=== PATIENT | male | born 1975 | race Caucasian/White ===

== ENCOUNTER 2020-11-26 12:51 | Inpatient (IN) ==
[2020-11-26] MEDS ORDERED: SODIUM CHLORIDE 0.9% 1,000 ML IV STA (13:07)
[2020-11-26 13:44] LABS: Basophils # 0.1 10*3/uL (0.0-0.2); Basophils % 1.1 % (0.0-0.8); Eosinophils # 0.1 10*3/uL (0.0-0.87); Eosinophils % 2.3 % (0.00-10.9); Hematocrit 27.4 VOL% (42.0-52.0); Hemoglobin 8.6 GM/DL (14.0-18.0); Immature Granulocytes % 0.6 %; Immature Granulocytes Absolute 0.03 #; Lymphocytes # 0.5 10*3/uL (1.4-4.0); Lymphocytes % 10.4 % (21.2-54.2); Mean Corpuscular HGB Conc 31.4 GM/DL (32-36); Mean Platelet Volume 11.7 FL (9.6-12.0); Monocytes % 13.8 % (1.7-12.7); Neutrophils % 71.8 % (38.7-73.9); Platelet Count 72 T/CUMM (130-400); Red Blood Count 2.66 MC/CUMM (3.8-5.5); Red Cell Distribution Width 17.3 % (9.3-17.3); White Blood Count 4.7 T/CUMM (4-12)
[2020-11-26 13:53] LABS: INR 1.4; PT Patient Result 15.6 SECS (10.5-12.0)
[2020-11-26 14:09] LABS: Anisocytosis 2+; Band Neutrophils 2 % (0-10); Eosinophils 1 % (0-10); Lymphocytes 11 % (20-55); Platelet Estimate Decreased; Segmented Neutrophils 72 % (50-85); Total Cells Counted 100
[2020-11-26 14:10] LABS: Hypochromasia Slight; Macrocytosis 1+
[2020-11-26 14:11] LABS: Albumin 3.1 G/DL (3.4-5.0); Bilirubin,Total 4.8 MG/DL (0.20-1.00); Calcium 7.9 MG/DL (8.5-10.1); Osmolality,Calculated 265.5 MOS/KG (273-304); Potassium 2.7 MMOL/L (3.5-5.1); Thyroid Stimulating Hormone 2.07 uIU/ml (0.358-3.74); Total Protein 7.7 G/DL (6.4-8.2)
[2020-11-26] MEDS ORDERED: SODIUM CHLORIDE 0.9% 1,000 ML IV SCH (15:30)
[2020-11-26] MEDS ORDERED: GLUCAGON 1 MG VIAL IM PRN ×2 (15:30→16:04)
[2020-11-26] MEDS ORDERED: ONDANSETRON 4 MG/2 ML VIAL IV PRN ×2 (15:30→16:04)
[2020-11-26] MEDS ORDERED: POTASSIUM CHLORIDE 20 MEQ TABLET PO ONE (16:02)
[2020-11-26] MEDS ORDERED: DEXTROSE 50% 25 GM/50 ML VIAL IV PRN (16:04)
[2020-11-26] MEDS ORDERED: LORazepam 2 MG/1 ML VIAL ONE (16:21)
[2020-11-26] MEDS ORDERED: LORazepam 2 MG/1 ML VIAL IM PRN (16:24)
[2020-11-26] MEDS: VALPROIC ACID INJ 500 MG in SODIUM CHLORIDE 0.9% 100 ML IV SCH (16:40)
[2020-11-26] MEDS ORDERED: LORazepam 2 MG/1 ML VIAL IV PRN (17:00)
[2020-11-26] MEDS ORDERED: POTASSIUM CHLORIDE INJ 40 MEQ in SODIUM CHLORIDE 0.9% 500 ML IV ONE (17:53)
[2020-11-26] MEDS: PANTOPRAZOLE 40 MG VIAL IV SCH (18:01)
[2020-11-26] MEDS: DEXT 5% NACL 0.9% KCL 20 MEQ 20 MEQ/1,000 ML BAG IV SCH (18:03)
[2020-11-26] MEDS: cefTRIAXone 1,000 MG in SODIUM CHLORIDE 0.9% 100 ML IV SCH (18:39)
[2020-11-26] MEDS ORDERED: ASPIRIN EC 81 MG TABLET PO SCH (21:30)
[2020-11-26] MEDS: THIAMINE 200 MG/2 ML VIAL IV SCH (21:45)
[2020-11-26] MEDS: LACOSAMIDE INJ 200 MG in SODIUM CHLORIDE 0.9% 50 ML IV SCH (21:45)
[2020-11-26] MEDS: ENOXAPARIN 40 MG/0.4 ML SYRINGE SUBCUT SCH (21:45)
[2020-11-27] MEDS: VALPROIC ACID INJ 500 MG in SODIUM CHLORIDE 0.9% 100 ML IV SCH ×3 (02:10→18:11)
[2020-11-27] MEDS: AZITHROMYCIN INJ 500 MG in SODIUM CHLORIDE 0.9% 250 ML IV SCH (03:15)
[2020-11-27 05:36] LABS: Hematocrit 23.6 VOL% (42.0-52.0); Hemoglobin 7.2 GM/DL (14.0-18.0); Immature Granulocytes % 0.7 %; Immature Granulocytes Absolute 0.03 #; Lymphocytes # 0.8 10*3/uL (1.4-4.0); Lymphocytes % 20.4 % (21.2-54.2); Mean Corpuscular HGB Conc 30.5 GM/DL (32-36); Mean Platelet Volume 11.2 FL (9.6-12.0); Monocytes % 20.4 % (1.7-12.7); Neutrophils % 56.5 % (38.7-73.9); Platelet Count 67 T/CUMM (130-400); Red Blood Count 2.27 MC/CUMM (3.8-5.5); Red Cell Distribution Width 17.5 % (9.3-17.3); White Blood Count 4.1 T/CUMM (4-12)
[2020-11-27] MEDS: DEXT 5% NACL 0.9% KCL 20 MEQ 20 MEQ/1,000 ML BAG IV SCH ×2 (05:42→18:11)
[2020-11-27 06:02] LABS: Eosinophils 1 % (0-10); Hypochromasia 1+; Lymphocytes 16 % (20-55); Microcytosis 1+; Platelet Estimate Decreased; Segmented Neutrophils 64 % (50-85); Total Cells Counted 100
[2020-11-27 06:07] LABS: Risk Ratio 4.08; VLDL Cholesterol 11.2 MG/DL
[2020-11-27 06:13] LABS: Albumin 2.4 G/DL (3.4-5.0); Bilirubin,Total 3.6 MG/DL (0.20-1.00); Calcium 7.2 MG/DL (8.5-10.1); Osmolality,Calculated 275.4 MOS/KG (273-304); Potassium 3.3 MMOL/L (3.5-5.1)
[2020-11-27 06:17] LABS: Ferritin 56.3 ng/mL (26-388)
[2020-11-27 06:52] LABS: Albumin 2.5 G/DL (3.4-5.0); Bilirubin,Direct 2.31 MG/DL (0.0-0.20); Bilirubin,Indirect 1.3 MG/DL (0.0-1.0); Bilirubin,Total 3.6 MG/DL (0.20-1.00); Total Protein 6.1 G/DL (6.4-8.2)
[2020-11-27 07:06] LABS: Sedimentation Rate-Westergren 64 MM/HR (0-15)
[2020-11-27 07:30] LABS: Hepatitis B Core IgM Quant 0.08 Index; Hepatitis B Surface Ag Quant < 0.10 Index; Hepatitis B Surface Ag Result Non-Reactive (NonReactive); Hepatitis C Virus Ab Result Non-Reactive (NonReactive); Vitamin B12 728 PG/ML (211-911)
[2020-11-27] MEDS ORDERED: SODIUM CHLORIDE 0.9% 1,000 ML IV PRN (08:50)
[2020-11-27 09:34] LABS: Hemoglobin A1 (Alkaline) 97.7 % (96.5-98.5); Hemoglobin A2 (Alkaline) 2.3 % (1.5-3.5)
[2020-11-27] MEDS: ROSUVASTATIN 20 MG TABLET PO SCH (09:56)
[2020-11-27] MEDS: PANTOPRAZOLE 40 MG VIAL IV SCH (09:56)
[2020-11-27] MEDS: ASPIRIN 325 MG TABLET PO SCH (09:56)
[2020-11-27] MEDS: LACOSAMIDE INJ 200 MG in SODIUM CHLORIDE 0.9% 50 ML IV SCH (09:57)
[2020-11-27] MEDS: THIAMINE 200 MG/2 ML VIAL IV SCH ×2 (09:57→20:23)
[2020-11-27] MEDS ORDERED: POTASSIUM CHLORIDE 20 MEQ TABLET PO ONE (10:06)
[2020-11-27 17:07] LABS: Hematocrit 27.8 VOL% (42.0-52.0); Hemoglobin 8.6 GM/DL (14.0-18.0)
[2020-11-27] MEDS: cefTRIAXone 1,000 MG in SODIUM CHLORIDE 0.9% 100 ML IV SCH (17:26)
[2020-11-27] MEDS: ENOXAPARIN 40 MG/0.4 ML SYRINGE SUBCUT SCH (20:23)
[2020-11-27] MEDS: LACOSAMIDE INJ 100 MG in SODIUM CHLORIDE 0.9% 50 ML IV SCH (20:51)
[2020-11-27] MEDS ORDERED: ATORVASTATIN 20 MG TABLET PO SCH (21:00)
[2020-11-28] MEDS: VALPROIC ACID INJ 500 MG in SODIUM CHLORIDE 0.9% 100 ML IV SCH ×3 (00:09→16:20)
[2020-11-28] MEDS: AZITHROMYCIN INJ 500 MG in SODIUM CHLORIDE 0.9% 250 ML IV SCH (03:13)
[2020-11-28 04:22] LABS: Basophils # 0.1 10*3/uL (0.0-0.2); Basophils % 1.3 % (0.0-0.8); Eosinophils # 0.1 10*3/uL (0.0-0.87); Eosinophils % 3.1 % (0.00-10.9); Hematocrit 25.1 VOL% (42.0-52.0); Hemoglobin 7.9 GM/DL (14.0-18.0); Immature Granulocytes % 0.4 %; Immature Granulocytes Absolute 0.02 #; Lymphocytes % 22.5 % (21.2-54.2); Mean Corpuscular HGB Conc 31.5 GM/DL (32-36); Mean Corpuscular Volume 100.4 FL (87-102); Mean Platelet Volume 10.4 FL (9.6-12.0); Monocytes % 20.4 % (1.7-12.7); Neutrophils % 52.3 % (38.7-73.9); Red Cell Distribution Width 19.5 % (9.3-17.3); White Blood Count 4.5 T/CUMM (4-12)
[2020-11-28 04:25] LABS: Platelet Count 76 T/CUMM (130-400)
[2020-11-28 04:41] LABS: Calcium 7.2 MG/DL (8.5-10.1); Eosinophils 3 % (0-10); Lymphocytes 21 % (20-55); Potassium 3.4 MMOL/L (3.5-5.1); Segmented Neutrophils 52 % (50-85); Total Cells Counted 100
[2020-11-28 04:42] LABS: Anisocytosis 1+; Hypochromasia 1+; Microcytosis 1+; Ovalocytes Slight
[2020-11-28 04:43] LABS: Platelet Estimate Decreased
[2020-11-28] MEDS: POTASSIUM CHLORIDE RIDER 10 MEQ/100 ML PREMIX IV PRN ×2 (05:20→06:22)
[2020-11-28] MEDS: ROSUVASTATIN 20 MG TABLET PO SCH (08:11)
[2020-11-28] MEDS: THIAMINE 200 MG/2 ML VIAL IV SCH ×2 (08:11→22:36)
[2020-11-28] MEDS: POTASSIUM CHLORIDE 20 MEQ TABLET PO SCH (08:11)
[2020-11-28] MEDS: ASPIRIN 325 MG TABLET PO SCH (08:11)
[2020-11-28] MEDS: PANTOPRAZOLE 40 MG VIAL IV SCH (08:11)
[2020-11-28] MEDS: LACOSAMIDE INJ 100 MG in SODIUM CHLORIDE 0.9% 50 ML IV SCH ×2 (09:50→22:36)
[2020-11-28] MEDS: DEXT 5% NACL 0.9% KCL 20 MEQ 20 MEQ/1,000 ML BAG IV SCH (12:29)
[2020-11-28] MEDS ORDERED: ACETAMINOPHEN 325 MG TABLET PO PRN (16:34)
[2020-11-28] MEDS ORDERED: ACETAMINOPHEN 325 MG TABLET PO ONE (16:38)
[2020-11-28 17:17] LABS: Bilirubin,Urine Negative (Negative); Blood, Urine Negative (Negative); Glucose,Urine (UA) Negative (Negative); Ketones,Urine Negative (Negative); Mucus,Urine Occasional /LPF (Occasional); Nitrite,Urine Negative (Negative); Protein,Urine Negative; RBC,Urine 1 /HPF (0-4); Urine Appearance CLEAR (Clear); Urine Color Yellow (Yellow); Urine Specific Gravity 1.012 (1.001-1.035)
[2020-11-28] MEDS: cefTRIAXone 1,000 MG in SODIUM CHLORIDE 0.9% 100 ML IV SCH (18:07)
[2020-11-28] MEDS: ENOXAPARIN 40 MG/0.4 ML SYRINGE SUBCUT SCH (21:10)
[2020-11-28 21:54] LABS: Barbiturates Screen,Urine Negative (Negative); Benzodiazepines Screen,Urine Negative (Negative); Cannabinoid Screen,Urine Negative (Negative); Opiate Screen,Urine Negative (Negative); Phencyclidine Screen,Urine Negative (Negative)
[2020-11-29] MEDS: VALPROIC ACID INJ 500 MG in SODIUM CHLORIDE 0.9% 100 ML IV SCH ×2 (00:04→10:35)
[2020-11-29] MEDS: DEXT 5% NACL 0.9% KCL 20 MEQ 20 MEQ/1,000 ML BAG IV SCH ×2 (03:40→18:03)
[2020-11-29] MEDS: AZITHROMYCIN INJ 500 MG in SODIUM CHLORIDE 0.9% 250 ML IV SCH (04:06)
[2020-11-29 06:14] LABS: Basophils # 0.1 10*3/uL (0.0-0.2); Basophils % 1.3 % (0.0-0.8); Eosinophils # 0.2 10*3/uL (0.0-0.87); Eosinophils % 4.3 % (0.00-10.9); Hematocrit 25.7 VOL% (42.0-52.0); Hemoglobin 7.8 GM/DL (14.0-18.0); Immature Granulocytes % 0.8 %; Immature Granulocytes Absolute 0.03 #; Lymphocytes # 0.8 10*3/uL (1.4-4.0); Mean Corpuscular HGB Conc 30.4 GM/DL (32-36); Mean Corpuscular Volume 102.4 FL (87-102); Mean Platelet Volume 10.8 FL (9.6-12.0); Monocytes % 21.5 % (1.7-12.7); Neutrophils % 51.1 % (38.7-73.9); Platelet Count 74 T/CUMM (130-400); Red Blood Count 2.51 MC/CUMM (3.8-5.5); Red Cell Distribution Width 19.3 % (9.3-17.3); White Blood Count 3.8 T/CUMM (4-12)
[2020-11-29 06:33] LABS: Calcium 7.6 MG/DL (8.5-10.1); Osmolality,Calculated 283.7 MOS/KG (273-304); Potassium 3.7 MMOL/L (3.5-5.1)
[2020-11-29 06:54] LABS: Eosinophils 3 % (0-10); Hypochromasia 1+; Lymphocytes 21 % (20-55); Myelocytes 1 %; Segmented Neutrophils 54 % (50-85); Total Cells Counted 100
[2020-11-29 06:55] LABS: Microcytosis 1+; Platelet Estimate Decreased
[2020-11-29] MEDS: LACOSAMIDE INJ 100 MG in SODIUM CHLORIDE 0.9% 50 ML IV SCH (09:49)
[2020-11-29] MEDS: THIAMINE 200 MG/2 ML VIAL IV SCH (09:52)
[2020-11-29] MEDS: PANTOPRAZOLE 40 MG VIAL IV SCH (09:53)
[2020-11-29] MEDS: ASPIRIN 325 MG TABLET PO SCH (09:54)
[2020-11-29] MEDS: ROSUVASTATIN 20 MG TABLET PO SCH (09:54)
[2020-11-29] MEDS: POTASSIUM CHLORIDE 20 MEQ TABLET PO SCH (09:54)
[2020-11-29] MEDS: DIVALPROEX 500 MG TABLET PO SCH ×2 (15:23→20:35)
[2020-11-29] MEDS ORDERED: NICOTINE 21 MG/24 HR PATCH TRANSDERM PRN (16:25)
[2020-11-29] MEDS: cefTRIAXone 1,000 MG in SODIUM CHLORIDE 0.9% 100 ML IV SCH (18:01)
[2020-11-29] MEDS: SODIUM CHLORIDE 0.9% 1,000 ML IV SCH (18:01)
[2020-11-29 18:55] LABS: Hematocrit 30.5 VOL% (42.0-52.0); Hemoglobin 9.4 GM/DL (14.0-18.0)
[2020-11-29] MEDS: levETIRAcetam 500 MG TABLET PO SCH (20:35)
[2020-11-29] MEDS: FERROUS SULFATE 325 MG TABLET PO SCH (20:35)
[2020-11-29] MEDS: ENOXAPARIN 40 MG/0.4 ML SYRINGE SUBCUT SCH (20:36)
[2020-11-29] MEDS ORDERED: FOLIC ACID 1 MG TABLET PO SCH (21:00)
[2020-11-30] MEDS: AZITHROMYCIN INJ 500 MG in SODIUM CHLORIDE 0.9% 250 ML IV SCH (04:20)
[2020-11-30 05:50] LABS: Basophils # 0.1 10*3/uL (0.0-0.2); Basophils % 2.2 % (0.0-0.8); Eosinophils # 0.2 10*3/uL (0.0-0.87); Eosinophils % 5.7 % (0.00-10.9); Hematocrit 29.7 VOL% (42.0-52.0); Immature Granulocytes % 0.5 %; Immature Granulocytes Absolute 0.02 #; Lymphocytes # 0.7 10*3/uL (1.4-4.0); Lymphocytes % 17.8 % (21.2-54.2); Mean Corpuscular HGB Conc 30.3 GM/DL (32-36); Mean Corpuscular Volume 101.7 FL (87-102); Mean Platelet Volume 10.6 FL (9.6-12.0); Monocytes % 22.7 % (1.7-12.7); Neutrophils % 51.1 % (38.7-73.9); Platelet Count 85 T/CUMM (130-400); Red Blood Count 2.92 MC/CUMM (3.8-5.5); Red Cell Distribution Width 21.2 % (9.3-17.3); White Blood Count 3.7 T/CUMM (4-12)
[2020-11-30 06:16] LABS: Anisocytosis 1+; Band Neutrophils 1 % (0-10); Eosinophils 4 % (0-10); Hypochromasia 1+; Lymphocytes 24 % (20-55); Microcytosis 1+; Ovalocytes Slight; Segmented Neutrophils 54 % (50-85); Total Cells Counted 100
[2020-11-30 06:17] LABS: Platelet Estimate Decreased
[2020-11-30 06:19] LABS: Atypical Lymphocytes Few
[2020-11-30 06:20] LABS: Calcium 8.6 MG/DL (8.5-10.1); Osmolality,Calculated 278.1 MOS/KG (273-304); Potassium 3.5 MMOL/L (3.5-5.1)
[2020-11-30 06:33] LABS: Total Protein 6.8 G/DL (6.4-8.2)
[2020-11-30] MEDS: SODIUM CHLORIDE 0.9% 1,000 ML IV SCH (07:20)
[2020-11-30] MEDS ORDERED: THIAMINE 100 MG TABLET PO SCH (09:00)
[2020-11-30] MEDS: ROSUVASTATIN 20 MG TABLET PO SCH (10:56)
[2020-11-30] MEDS: ASPIRIN 325 MG TABLET PO SCH (10:56)
[2020-11-30] MEDS: POTASSIUM CHLORIDE 20 MEQ TABLET PO SCH (10:56)
[2020-11-30] MEDS: levETIRAcetam 500 MG TABLET PO SCH (10:56)
[2020-11-30] MEDS: DIVALPROEX 500 MG TABLET PO SCH ×2 (10:56→18:01)
[2020-11-30] MEDS: FERROUS SULFATE 325 MG TABLET PO SCH (10:56)
[2020-11-30 15:18] VITALS: BP 126/65
[2020-12-01 08:08] LABS: Total Protein (Chem) 6.8 G/DL (6.4-8.3)
[2020-12-01 08:09] LABS: Immunoglobulin A (Chem) 643 MG/DL (70-400); Immunoglobulin G (Chem) 1630 MG/DL (700-1600); Immunoglobulin M (Chem) 267 MG/DL (40-230)
[2020-12-01 09:06] LABS: Albumin (SPE) 3.8 G/DL (3.2-5.3); Albumin (SPE) Rel % 55.8 %; Alpha 1 (SPE) 0.2 G/DL (0.1-0.4); Alpha 1 (SPE) Rel % 3.3 %; Alpha 2 (SPE) 0.4 G/DL (0.4-1.0); Beta (SPE) 0.7 G/DL (0.5-1.1); Beta (SPE) Rel % 10.7 %; Gamma (SPE) 1.6 G/DL (0.7-1.7); Gamma (SPE) Rel % 24.2 %
== END 2020-11-30 18:01 | disposition home or self-care (01) | DRG 100 ==
LOC: EDUNIT# → EDSEX → EDBD → N.ED 12:51 → N.EDINP 12:51 → N.4E 15:55
PROVIDERS: ADMIT Hospitalist; ATTEND Hospitalist